=== PATIENT | female | born 1950 | race Two or more races ===

== ENCOUNTER 2017-08-18 07:36 | Day surgery (SDC) | payer MEDICARE, OTHER ==
[2017-08-12 13:46] LABS: BASOPHILS % (AUTO) 1.1 % (0.0-2.0); EOSINOPHILS % (AUTO) 1.6 % (0.0-3.0); HEMATOCRIT 39.2 % (37.0-47.0); HEMOGLOBIN 12.4 G/DL (12.0-16.0); LYMPHOCYTES % (AUTO) 32.9 % (20.0-45.0); MEAN CORPUSCULAR VOLUME 90 FL (80-99); MONOCYTES % (AUTO) 8.2 % (1.0-10.0); NEUTROPHILS % (AUTO) 56.2 % (45.0-75.0); PLATELET COUNT 317 K/UL (150-450); RED BLOOD COUNT 4.33 M/UL (4.20-5.40); RED CELL DISTRIBUTION WIDTH 12.5 % (11.6-14.8); WHITE BLOOD COUNT 6.6 K/UL (4.8-10.8)
[2017-08-12 14:04] LABS: ANION GAP 9 mmol/L (5-15); BLOOD UREA NITROGEN 26 mg/dL (7-18); CALCIUM 9.2 MG/DL (8.5-10.1); CARBON DIOXIDE 30 MMOL/L (21-32); CHLORIDE 105 MMOL/L (98-107); CREATININE 0.7 MG/DL (0.55-1.30); POTASSIUM 4.1 MMOL/L (3.5-5.1); SODIUM 144 MMOL/L (136-145)
[2017-08-12 14:06] LABS: INR 0.9 (0.9-1.1)
[2017-08-12 14:24] VITALS: BP 139/74
--- NOTE | 2017-08-12 15:17 | Diagnostic Imaging Report ---
Indication: Cough Comparison: None 2 views of the chest obtained. Findings: Cardiomediastinal silhouette and pulmonary vascularity are within normal limits for age with a mildly ectatic aorta consistent with atherosclerotic disease. The diaphragmatic contour is smooth and costophrenic angles are sharp. No pleural effusions are identified. The bones are osteopenic. Impression: No acute disease
--- NOTE | 2017-08-13 12:39 | Cardiology Report ---
APPROVED REPORT EKG Measurement Heart [id number] Normal sinus rhythm Normal ECG
--- NOTE | 2017-08-14 09:10 | Pre-Procedure Note/Attestation ---
Pre-Procedure Note/Attestation Complete Prior to Procedure Planned Procedure: left Procedure Narrative: PHACO WITH IOL Indications for Procedure Pre-Operative Diagnosis: CATARACT Attestation I attest that I discussed the nature of the procedure; its benefits; risks and complications; and alternatives (and the risks and benefits of such alternatives ), prior to the procedure, with the patient (or the patient's legal leather goods sales representative). I attest that, if there was a reasonable possibility of needing a blood transfusion, the patient (or the patient's legal leather goods sales representative) was given the [facility] standardized written summary, pursuant to the [place] Blood Safety Act ([place] Health and Safety Code # 1645, as amended). I attest that I re-evaluated the patient just prior to the surgery and that there has been no change in the patient's H&P, except as documented below: FLORESITA RIVERA Aug 14, 2017 09:10
--- NOTE | 2017-08-14 09:14 | Opthalmology H&P ---
Ophthalmology H&P H&P Chief Complaint: decreased vision in left eye HPI Vision Affects Ability to: read, focus/use eyes together, manage personal affairs HPI Narrative BLURRY VISION Exam Visual Acuity: OD; 20/50 OS; 20/200 Tension: OD; 14 OS; 15 Eye Exam: normal OU: external exam, palpebral fissure-width, marginal reflex distance, levator function, corneas, anterior chambers, findings: lens - NS OS ; NS, fundus exam - OD; VMT os: MACULAR HOLE. Assessment/Plan Diagnosis: (1) Cataract Treatment Plan: cataract extraction w/ lens implant Goals of Treatment: improvement of vision, enhance quality of life Attestation Attestation The risks and benefits of the surgery as well as alternative procedures were explained to the patient in detail. FLORESITA RIVERA Aug 14, 2017 09:14
[~2017-08-18] VITALS: Ht 149.9 cm; Wt 62.1 kg
[2017-08-18] VITALS (7 sets, daily range): BP systolic 134–157; BP diastolic 72–86
[~2017-08-18 07:36] MED LIST: Akten 3.5% 1ml Btl LEFT EYE ONE; IBUPROFEN600 MG ORAL; Proparacaine 0.5% Opth Soln 15ml LEFT EYE ONE; TRAMADOL HCL50 MG ORAL; Tetracaine 0.5% Opth 4ml Soln LEFT EYE ONE; VITAMIN D1000 UNI1 ORAL; VITAMIN D250000 UNI1 ORAL
--- NOTE | 2017-08-18 08:30 | Pre-op HX & Phy Repo 2 SIG ---
NOTE: POOR AUDIO QUALITY REASON FOR EVALUATION: This is a 67-year-old female who is going for elective surgery on the 08/18/2017 for left eye cataract. Please see full Ophthalmology dictation for History and Physical by Dr. Sarthak Jacobs. The patient was evaluated. Chart was reviewed. PAST MEDICAL HISTORY/REVIEW OF SYSTEMS: Remarkable for hypertension 01:29. No history of chest pain. Denies prior heart attacks or palpitations. No stroke or seizures. 01:57 No history of anemia. No history of bronchitis. 02:32. PAST SURGICAL HISTORY: Appendectomy and 02:40 HABITS: The patient smokes 03:33____ Denies alcohol or street drugs FAMILY HISTORY: Mother had Parkinson disease 03:05 PHYSICAL EXAMINATION: GENERAL: The patient is well developed and well nourished female in her 60s, no acute distress. VITAL SIGNS: Blood pressure 134/94, temperature 98.1, heart rate 92 HEENT: Head, normocephalic. Ears, clear. Eyes, full description per Dr. Sarthak Jacobs. Mouth, clear and moist, multiple dentures. NECK: Supple. No jugular vein distention. Carotids artery +2. Trachea midline. CHEST: No deformity or asymmetry. LUNGS: Clear. No rales or rhonchi. HEART: Sinus rhythm. . No S3 and S4. No murmur. ABDOMEN: Soft, benign. Liver and spleen not enlarged. EXTREMITIES: NERVOUS SYSTEM: No tremor. No nystagmus. No asymmetry. LABORATORY AND DIAGNOSTIC DATA: IMPRESSION: 1. Cataract, right eye. 2. Hypertension. 3. . 4. 5. PLAN: Cataract extraction, right eye with intraocular lens implant per Dr. Sarthak Jacobs. CONCLUSION: The patient has history of hypertension The patient's vital signs stable. the patient will be kept NPO from midnight. The patient's condition optimized for surgery. Thank you very much, Dr. Jacobs, for privilege to participate in the presurgical care of this interesting patient. Sabino Donnelly M.D. DR: JERAMIE JOB#: [id number] CC:
[2017-08-18] MEDS: Cyclopentolate 1% Opth Sol 2ml LEFT EYE SCH ×3 (08:49→09:07)
[2017-08-18] MEDS: Tobramycin Op Soln 0.3% 5ml LEFT EYE SCH ×3 (08:49→09:08)
[2017-08-18] MEDS: Phenylephrine 10% Opth Soln 5ml LEFT EYE SCH ×3 (08:49→09:07)
[2017-08-18] MEDS: Tropicamide 1% Opth 15ml Soln LEFT EYE SCH ×3 (08:49→09:08)
[2017-08-18] MEDS ORDERED: BSS 500ml btl ONE (09:30)
[2017-08-18] MEDS ORDERED: Dexamethasone 4mg/ml vial ONE (09:30)
[2017-08-18] MEDS ORDERED: EPINEPHrine 1mg/1ml Amp ONE ×2 (09:30→10:36)
[2017-08-18] MEDS ORDERED: Pred Forte 1% Opth Susp 1ml ONE (09:30)
[2017-08-18] MEDS ORDERED: Sterile Water 10ml Vial ONE (09:30)
[2017-08-18] MEDS ORDERED: Maxitrol Opth Oint 3.5gm ONE (09:30)
[2017-08-18] MEDS ORDERED: acetaZOLAMIDE 500mg Inj ONE (10:35)
[2017-08-18] MEDS ORDERED: Lidocaine 4% Amp ONE (10:35)
[2017-08-18] MEDS ORDERED: Pilocarpine 4% Opth 15ml Soln ONE (10:35)
[2017-08-18] MEDS ORDERED: Lidocaine 1% MPF 10mg/ml 5ml ONE ×2 (10:35→10:45)
[2017-08-18] MEDS ORDERED: Carbachol 0.01% Op Soln 1.5ml vial ONE (10:35)
[2017-08-18] MEDS ORDERED: Sodium Hyaluronate 14 mg/ml 0.85ml ONE (10:36)
[2017-08-18] MEDS ORDERED: Bupivacaine 0.75% 30ml vial INJ ONE (10:36)
[2017-08-18] MEDS ORDERED: Lidocaine 2% MPF 5ml Vial INJ ONE (10:36)
[2017-08-18] MEDS ORDERED: BSS 15ml BTL ONE (10:36)
[2017-08-18] MEDS ORDERED: Povidone-Iodine 5% opth solution ONE (10:37)
[2017-08-18] MEDS ORDERED: LR 1000ml 1,000 ML IVLG SCH (10:40)
--- NOTE | 2017-08-18 10:40 | Anethesia Preoperative Eval ---
Anesthesia Pre-op PMH/ROS General Date of Evaluation: Aug 18, 2017 Anesthesiologist: Lake ASA Score: ASA 2 Mallampati Score Class I : Soft palate, uvula, fauces, pillars visible Class II: Soft palate, uvula, fauces visible Class III: Soft palate, base of uvula visible Class IV: Only hard plate visible Mallampati Classification: Class II Surgeon: Arlene Diagnosis: Left cataract Surgical Procedure: Left cataract extraction with IOL Anesthesia History: none Family History: no anesthesia problems Allergies: Coded Allergies: No Known Allergies (Unverified , 08/12/17) Medications: see eMAR Past Medical History Cardiovascular: Reports: HTN - borderline, Denies: CAD, NE, valve dz, arrhythmia, other Pulmonary: Denies: asthma, COPD, BABAR, other Gastrointestinal/Genitourinary: Denies: GERD, CRI, ESRD, other Neurologic/Psychiatric: Denies: dementia, CVA, depression/anxiety, TIA, other Endocrine: Denies: DM, hypothyroidism, steroids, other HEENT: Denies: cataract (L), cataract (R), glaucoma, IROQUOIS (L), IROQUOIS (R), other Hematology/Immune: Denies: anemia, DVT, bleeding disorder, other Musculoskeletal/Integumentary: Denies: OA, RA, DJD, DDD, edema, other PSxH Narrative: left vitrectomy, lap appy, left shoulder sx Anesthesia Pre-op Phys. Exam Physician Exam Last Vital Signs Date Time Temp Pulse Resp B/P (MAP) Pulse Ox O2 Delivery O2 Flow Rate FiO2 08/18/17 08:53 98.0 67 17 134/75 99 Room Air Constitutional: NAD Cardiovascular: RRR Respiratory: CTA Airway Exam Mallampati Score: Class II MO: full ROM: full Teeth: intact Anesthesia Pre-op A/P Labs see chart Studies Pre-op Studies: EKG - sr Risk Assessment & Plan Assessment: ASA II Plan: MAC Status Change Before Surgery: No Pre-Antibiotics Drug: N/A CRESENCIO VENTURA M.D. Aug 18, 2017 10:40
--- NOTE | 2017-08-18 10:42 | Immediate Post-Op Evaluation ---
Immediate Post-Op Evalulation Immediate Post-Op Evalulation Procedure: Left cataract extraction with IOL Date of Evaluation: Aug 18, 2017 Time of Evaluation: 11:43 IV Fluids: 500 Blood Products: 0 Estimated Blood Loss: 0 Urinary Output: 0 Blood Pressure Systolic: 142 Blood Pressure Diastolic: 72 Pulse Rate: 72 Respiratory Rate: 15 O2 Sat by Pulse Oximetry: 96 Temperature (Fahrenheit): 97.8 Pain Score (1-10): 0 Nausea: No Vomiting: No Complications 0 Patient Status: awake, reacts, patent, none Hydration Status: adequate Drug: N/A CRESENCIO VENTURA M.D. Aug 18, 2017 10:42
--- NOTE | 2017-08-18 10:42 | 48 Hour Post Anesthesia Eval ---
Post Anesthesia Evaluation Procedure: Left cataract extraction with IOL Date of Evaluation: Aug 18, 2017 Airway: patent Nausea: No Vomiting: No Pain Intensity: 0 Hydration Status: adequate Cardiopulmonary Status: at baseline Mental Status/LOC: patient returned to baseline Post-Anesthesia Complications: 0 Follow-up care needed: ready to discharge CRESENCIO VENTURA M.D. Aug 18, 2017 10:42
[2017-08-18] MEDS ORDERED: NS Irrig 1000ml ONE (10:45)
[2017-08-18] MEDS ORDERED: Sterile Water Irrig 1000ml IRRIG ONE (10:45)
[2017-08-18] MEDS ORDERED: Midazolam 2mg/2ml Inj ONE (10:45)
[2017-08-18] MEDS ORDERED: LR 1000ml ONE (10:45)
[2017-08-18] MEDS ORDERED: fentaNYL 100 mcg/2 mL IV ONE (10:45)
[2017-08-18] MEDS ORDERED: DiphenhydrAMINE 50mg/ml Inj IVP PRN (10:45)
--- NOTE | 2017-08-18 15:20 | Brief Operative Note ---
Immediate Post Operative Note Operative Note Chief Complaint: blurry vision Pre-op Diagnosis: CATARACT, OS Procedure: phaco with IOL, OS Post-op Diagnosis: same as pre-op Findings: consistent w/pre-op dx studies Surgeon: Arlene Anesthesiologist: Angel Anesthesia: MAC Specimen: none Complications: none Condition: stable Fluids: LR Estimated Blood Loss: none Drains: none Implant(s) used?: Yes FLORESITA RIVERA Aug 18, 2017 15:20
--- NOTE | 2017-08-18 15:21 | Operative Note - PDOC ---
Operative Note Operative Note Date of Operation/Procedure: Aug 18, 2017 Chief Complaint: blurry vision Pre-op Diagnosis: CATARACT, OS Procedure: phaco with IOL, OS Post-op Diagnosis: same as pre-op Operative Findings: consistent w/pre-op dx studies Surgeon: Arlene Anesthesiologist: Angel Anesthesia: MAC Specimen: none Complications: none Condition: stable Fluids: LR Estimated Blood Loss: none Drains: none Implant(s) used?: Yes Indications for Procedure cataract Description of Procedure This patient has been complaining visually significant cataract in the affected eye with the best corrected visual acuity under moderate glare conditions worse. The patient complains of difficulties with glare in performing activities of daily living and wants to manage personal affairs with comfort and accuracy and see well enough to move with safety at home and outdoors. The risks, benefits and alternatives of the procedure were discussed with the patient in the office prior to scheduling surgery. All questions from the patient were answered after the surgical procedure was explained in detail. The risks of the procedure as explained to the patient include, but are not limited to, pain, infection, bleeding, loss of vision, retinal detachment, need for further surgery, loss of lens nucleus, double vision, etc. Alternative procedures were discussed which include, to do nothing or seek a second opinion. Informed consent for this procedure was obtained from the patient. The patient was referred to a primary care physician for a cardiopulmonary clearance prior to surgery, after proper evaluation was done patient was properly scheduled for outpatient surgery. The patient was brought to the operating room where the anesthesiologist established I.V. lines and cardiac monitoring leads. Mild intravenous sedation was administered. The patient was then prepared with a 5% solution of povidone -iodine to the conjunctival fornix and lashes, and a 5% solution of povidone- iodine to the lids and periorbital skin. The patient was then draped in the usual sterile fashion. A lid speculum was then placed in the operative eye. A keratome blade was then used to create a biplanar incision into the anterior chamber. Viscoelastics was then instilled into the anterior chamber. A capsulorrhexis was then fashioned with an utrata forceps. BSS and a cannula were then used to hydrodissect and hydro delineate the lens. Paracentesis incision was made at 3 o'clock with sharp blade. The phacoemulsification unit, after being properly adjusted and tested, was then used to emulsify the nucleus followed by aspiration and irrigation of residual cortical material. Healon was then instilled into the anterior chamber. The corneal wound was then enlarged to the size of the optic with the luis m keratome blade. The intraocular lens was then inspected for right power and size and thought to be satisfactory. Then the lens was gently placed in the capsular bag. Positioning within the capsular bag was confirmed by direct visualization. Optic centration was accomplished with a Sinskey hook. Viscoelastics was removed from the anterior chamber using the irrigation and aspiration unit. The corneal wound was then tested for leaks and none were found. The lid speculum were then removed. Sponge and needle counts were correct. An eye patch and shield were placed over the operative eye. The patient was taken to the recovery room in stable condition. There were no complications. The patient tolerated the procedure well. The patient was then transferred to the ambulatory surgery unit in stable and satisfactory condition , was given detailed written instructions and asked to follow up in the office the next day. FLORESITA RIVERA M.D. FLORESITA RIVERA Aug 18, 2017 15:21
--- NOTE | 2017-08-26 00:45 | Physician Query ---
--------- THIS DOCUMENT IS A PERMANENT PART OF THE MEDICAL RECORD --------- PLEASE COMPLETE DOCUMENT BEFORE SIGNING Dear Dr. RIVERA Date: 08/25/17 Kettle Firer/CDS Name: LALA PETERSEN, CLEMENTINA Exercise your independent professional judgment when responding to the query. Questions asked do not imply a particular answer is desired or expected. We greatly appreciate your clarification on this issue. CLINICAL DOCUMENTATION STATES: Operative Note Date of Operation/Procedure: Aug 18, 2017 Chief Complaint: blurry vision Pre-op Diagnosis: CATARACT, OS Procedure: phaco with IOL, OS Post-op Diagnosis: same as pre-op Operative Findings: consistent w/pre-op dx studies Surgeon: Arlene Anesthesiologist: Angel Anesthesia: MAC Please respond to the following question: Please specify the type of cataract if known. PHYSICIAN RESPONSE:nuclear sclerotic age related left eye Please also document in your Progress Notes and/or Discharge Summary and indicate if the condition was present on admission. FLORESITA RIVERA M.D. DATE & TIME [facility]
== END 2017-08-18 13:10 | disposition home or self-care (01) ==
LOC: SUR 07:36
DX: H25.12 Age-related nuclear cataract, left eye (principal); Z90.89 Acquired absence of other organs; I10 Essential (primary) hypertension; F17.200 Nicotine dependence, unspecified, uncomplicated
CPT/HCPCS: 36415; 66984; 71046; 80048; 85025; 85610; 85730; 93005; J0171; J1100; J2250; J3010; J3370; J7120; V2632; 94003; 94150; A4216

== ENCOUNTER 2017-11-16 06:29 | Day surgery (SDC) | payer MEDICARE, OTHER ==
--- NOTE | 2017-11-13 09:31 | Pre-Procedure Note/Attestation ---
Pre-Procedure Note/Attestation Complete Prior to Procedure Planned Procedure: right Procedure Narrative: phaco with IOL Indications for Procedure Pre-Operative Diagnosis: cataract Attestation I attest that I discussed the nature of the procedure; its benefits; risks and complications; and alternatives (and the risks and benefits of such alternatives ), prior to the procedure, with the patient (or the patient's legal parts sales representative). I attest that, if there was a reasonable possibility of needing a blood transfusion, the patient (or the patient's legal parts sales representative) was given the [facility] standardized written summary, pursuant to the [place] Blood Safety Act ([place] Health and Safety Code # 1645, as amended). I attest that I re-evaluated the patient just prior to the surgery and that there has been no change in the patient's H&P, except as documented below: FLORESITA RIVERA Nov 13, 2017 09:31
--- NOTE | 2017-11-13 09:36 | Opthalmology H&P ---
Ophthalmology H&P H&P Chief Complaint: decreased vision in right eye HPI Vision Affects Ability to: read, focus/use eyes together, manage personal affairs HPI Narrative blurry vision Exam Visual Acuity: OD: 20/60 OS: 20/80 Tension: OD: 12 OS: 11 Eye Exam: normal OU: external exam, palpebral fissure-width, marginal reflex distance, levator function, corneas, anterior chambers; findings: lens - OD: ns OS: IOL, fundus exam - OD: VMT OS: macular hole Assessment/Plan Diagnosis: (1) Nuclear age-related cataract, right eye Treatment Plan: cataract extraction w/ lens implant Goals of Treatment: improvement of vision, enhance quality of life Attestation Attestation The risks and benefits of the surgery as well as alternative procedures were explained to the patient in detail. FLORESITA RIVERA Nov 13, 2017 09:36
[~2017-11-16] VITALS: Ht 152.4 cm; Wt 63.5 kg
[2017-11-16] VITALS (10 sets, daily range): BP systolic 104–126; BP diastolic 65–75
[~2017-11-16 06:29] MED LIST changes: -Akten 3.5% 1ml Btl LEFT EYE ONE; -Proparacaine 0.5% Opth Soln 15ml LEFT EYE ONE; -Tetracaine 0.5% Opth 4ml Soln LEFT EYE ONE
[2017-11-16] MEDS ORDERED: Akten 3.5% 1ml Btl RIGHT EYE ONE (07:00)
[2017-11-16] MEDS ORDERED: Tetracaine 0.5% Opth 4ml Soln RIGHT EYE ONE (07:00)
[2017-11-16] MEDS ORDERED: Proparacaine 0.5% Opth Soln 15ml RIGHT EYE ONE (07:00)
[2017-11-16] MEDS: Cyclopentolate 1% Opth Sol 2ml RIGHT EYE SCH ×3 (08:30→08:56)
[2017-11-16] MEDS: Tropicamide 1% Opth 15ml Soln RIGHT EYE SCH ×3 (08:31→08:57)
[2017-11-16] MEDS: Diclofenac Sod 0.1% Op Soln RIGHT EYE SCH ×3 (08:31→08:56)
[2017-11-16] MEDS: Phenylephrine 10% Opth Soln 5ml RIGHT EYE SCH ×3 (08:31→08:57)
[2017-11-16] MEDS: Tobramycin Op Soln 0.3% 5ml RIGHT EYE SCH ×3 (08:32→08:57)
[2017-11-16] MEDS ORDERED: BP MED PO (08:47)
[2017-11-16] MEDS ORDERED: Sodium Hyaluronate 14 mg/ml 0.85ml ONE ×2 (10:17→13:07)
[2017-11-16] MEDS ORDERED: BSS 500ml btl ONE (10:17)
[2017-11-16] MEDS ORDERED: Povidone-Iodine 5% opth solution ONE (10:17)
[2017-11-16] MEDS ORDERED: EPINEPHrine 1mg/1ml Amp ONE (10:17)
[2017-11-16] MEDS ORDERED: BSS 15ml BTL ONE (10:17)
[2017-11-16] MEDS ORDERED: Pilocarpine 2% Opth 15ml Soln ONE (10:17)
[2017-11-16] MEDS ORDERED: LR 1000ml 1,000 ML IVLG SCH (10:40)
--- NOTE | 2017-11-16 10:40 | Anethesia Preoperative Eval ---
Anesthesia Pre-op PMH/ROS General Date of Evaluation: Nov 16, 2017 Time of Evaluation: 10:23 Anesthesiologist: Dorene ASA Score: ASA 3 Mallampati Score Class I : Soft palate, uvula, fauces, pillars visible Class II: Soft palate, uvula, fauces visible Class III: Soft palate, base of uvula visible Class IV: Only hard plate visible Mallampati Classification: Class II Surgeon: Arlene Diagnosis: Cat OD Surgical Procedure: Cat Ext IOL OD Anesthesia History: none Family History: no anesthesia problems Allergies: Coded Allergies: No Known Allergies (Unverified , 08/12/17) Medications: see eMAR Past Medical History Cardiovascular: Reports: other - HL Gastrointestinal/Genitourinary: Reports: GERD HEENT: Reports: cataract (L), cataract (R) PSxH Narrative: D&C, Cat Ext IOL OS Anesthesia Pre-op Phys. Exam Physician Exam Last Vital Signs Date Time Temp Pulse Resp B/P (MAP) Pulse Ox O2 Delivery O2 Flow Rate FiO2 11/16/17 09:07 97.6 71 20 104/69 97 Room Air 97.6 Constitutional: NAD Neurologic: CN 2-12 intact Cardiovascular: RRR Respiratory: CTA Gastrointestinal: S/NT/ND Airway Exam Mallampati Score: Class II MO: limited ROM: limited Teeth: intact Anesthesia Pre-op A/P Risk Assessment & Plan Assessment: ASA 3 Plan: TIVA Status Change Before Surgery: Micheal Adrian MD Nov 16, 2017 10:40
[2017-11-16] MEDS ORDERED: Atropine Inj 1mg/10ml Syr IV PRN (10:45)
[2017-11-16] MEDS ORDERED: Hydromorphone 0.5mg/0.5ml inj IVP PRN (10:45)
[2017-11-16] MEDS ORDERED: oxyCODONE HCL/Acetaminophen 5/325mg ORAL PRN (10:45)
[2017-11-16] MEDS ORDERED: Labetalol 5mg/ml 20ml vial IV PRN (10:45)
[2017-11-16] MEDS ORDERED: Midazolam 2mg/2ml Inj IVP PRN (10:45)
[2017-11-16] MEDS ORDERED: fentaNYL 100 mcg/2 mL IV PRN (10:45)
[2017-11-16] MEDS ORDERED: Norco 5mg/325mg tab ORAL PRN (10:45)
[2017-11-16] MEDS ORDERED: DiphenhydrAMINE 50mg/ml Inj IVP PRN (10:45)
[2017-11-16] MEDS ORDERED: LORazepam Inj 2mg/ml 1ml IV PRN (10:45)
[2017-11-16] MEDS ORDERED: Ketorolac 30mg Inj IV PRN ×2 (10:45)
[2017-11-16] MEDS ORDERED: HYDROcodone/Acetamin 7.5/325 tab ORAL PRN (10:45)
--- NOTE | 2017-11-16 10:45 | 48 Hour Post Anesthesia Eval ---
Post Anesthesia Evaluation Procedure: Cat Ext IOL OD Date of Evaluation: Nov 16, 2017 Time of Evaluation: 13:23 Blood Pressure Systolic: 128 0: 76 Pulse Rate: 74 Respiratory Rate: 18 Temperature (Fahrenheit): 98.2 O2 Sat by Pulse Oximetry: 98 Airway: patent Nausea: No Vomiting: No Pain Intensity: 1 Hydration Status: adequate Cardiopulmonary Status: Stable Mental Status/LOC: patient returned to baseline Follow-up Care/Observations: 0 Post-Anesthesia Complications: 0 Follow-up care needed: ready to discharge Micheal Catherine MD Nov 16, 2017 10:45
--- NOTE | 2017-11-16 10:45 | Immediate Post-Op Evaluation ---
Immediate Post-Op Evalulation Immediate Post-Op Evalulation Procedure: Cat Ext IOL OD Date of Evaluation: Nov 16, 2017 Time of Evaluation: 11:19 IV Fluids: 700 LR Blood Products: 0 Estimated Blood Loss: 1 Urinary Output: 0 Blood Pressure Systolic: 126 Pulse Rate: 79 Respiratory Rate: 16 O2 Sat by Pulse Oximetry: 99 Temperature (Fahrenheit): 97.6 Pain Score (1-10): 1 Nausea: No Vomiting: No Complications 0 Patient Status: awake, reacts, patent, none Hydration Status: adequate Micheal Catherine MD Nov 16, 2017 10:45
[2017-11-16] MEDS ORDERED: Alfentanil 2ml Inj ONE (10:49)
[2017-11-16] MEDS ORDERED: Carbachol 0.01% Op Soln 1.5ml vial ONE (11:14)
[2017-11-16] MEDS ORDERED: Norco 5mg/325mg tab ORAL SCH (12:45)
--- NOTE | 2017-11-17 11:06 | Brief Operative Note ---
Immediate Post Operative Note Operative Note Chief Complaint: blurry vision Pre-op Diagnosis: cataract, OD Procedure: phaco with IOL Post-op Diagnosis: Pseudophakia Post-op Diagnosis: same as pre-op Findings: consistent w/pre-op dx studies Surgeon: Arlene Anesthesiologist: Brady Anesthesia: MAC Specimen: none Complications: none Condition: stable Fluids: LR Estimated Blood Loss: none Drains: none Implant(s) used?: Yes FLORESITA RIVERA Nov 17, 2017 11:06
--- NOTE | 2017-11-17 11:35 | Operative Note - PDOC ---
Operative Note Operative Note Date of Operation/Procedure: Nov 16, 2017 Chief Complaint: blurry vision Pre-op Diagnosis: cataract, OD Procedure: phaco with IOL Post-op Diagnosis: Pseudophakia Post-op Diagnosis: same as pre-op Operative Findings: consistent w/pre-op dx studies Surgeon: Arlene Anesthesiologist: Brady Anesthesia: MAC Specimen: none Complications: none Condition: stable Fluids: LR Estimated Blood Loss: none Drains: none Implant(s) used?: Yes Indications for Procedure cataract Description of Procedure This patient has been complaining visually significant cataract in the affected eye with the best corrected visual acuity under moderate glare conditions worse. The patient complains of difficulties with glare in performing activities of daily living and wants to manage personal affairs with comfort and accuracy and see well enough to move with safety at home and outdoors. The risks, benefits and alternatives of the procedure were discussed with the patient in the office prior to scheduling surgery. All questions from the patient were answered after the surgical procedure was explained in detail. The risks of the procedure as explained to the patient include, but are not limited to, pain, infection, bleeding, loss of vision, retinal detachment, need for further surgery, loss of lens nucleus, double vision, etc. Alternative procedures were discussed which include, to do nothing or seek a second opinion. Informed consent for this procedure was obtained from the patient. The patient was referred to a primary care physician for a cardiopulmonary clearance prior to surgery, after proper evaluation was done patient was properly scheduled for outpatient surgery. The patient was brought to the operating room where the anesthesiologist established I.V. lines and cardiac monitoring leads. Mild intravenous sedation was administered. The patient was then prepared with a 5% solution of povidone -iodine to the conjunctival fornix and lashes, and a 5% solution of povidone- iodine to the lids and periorbital skin. The patient was then draped in the usual sterile fashion. A lid speculum was then placed in the operative eye. A keratome blade was then used to create a biplanar incision into the anterior chamber. Viscoelastics was then instilled into the anterior chamber. A capsulorrhexis was then fashioned with an utrata forceps. BSS and a cannula were then used to hydrodissect and hydro delineate the lens. Paracentesis incision was made at 3 o'clock with sharp blade. The phacoemulsification unit, after being properly adjusted and tested, was then used to emulsify the nucleus , a pc opening was noted and careful aspiration and irrigation of residual cortical mterial was done with the I and A unit. Healon was then instilled into the anterior chamber. The corneal wound was then enlarged to the size of the optic with the luis m keratome blade. The intraocular lens was then inspected for right power and size and thought to be satisfactory. Then the lens was gently placed in the capsular bag. Positioning within the capsular bag was confirmed by direct visualization. Optic centration was accomplished with a Sinskey hook. Viscoelastics was removed from the anterior chamber using the irrigation and aspiration unit. The corneal wound was then tested for leaks and none were found. The lid speculum were then removed. Sponge and needle counts were correct. An eye patch and shield were placed over the operative eye. The patient was taken to the recovery room in stable condition. There were no complications. The patient tolerated the procedure well. The patient was then transferred to the ambulatory surgery unit in stable and satisfactory condition , was given detailed written instructions and asked to follow up in the office the next day. FLORESITA RIVERA M.D. FLORESITA RIVERA Nov 17, 2017 11:35
== END 2017-11-16 13:20 | disposition home or self-care (01) ==
LOC: SUR 06:29
DX: H25.11 Age-related nuclear cataract, right eye (principal); J30.9 Allergic rhinitis, unspecified; E78.5 Hyperlipidemia, unspecified; K21.9 Gastro-esophageal reflux disease without esophagitis
CPT/HCPCS: 66984; J0171; J3370; J3490